=== PATIENT | female | born 1990 | race Caucasian/White ===

== ENCOUNTER 2017-06-27 23:33 | Emergency (ER) | payer MEDICAID ==
[~2017-06-27] VITALS: Ht 157.5 cm; Wt 59.0 kg
[2017-06-28 01:50] LABS: CHLORIDE 102 mEq/L (98-107)
[2017-06-28 01:54] LABS: BASOPHILS % 0.4 % (0.0-2.0); HEMATOCRIT. 38.5 % (36.0-48.0); LYMPHOCYTES % 26.4 % (20.0-50.0); MEAN CORPUSCULAR HEMOGLOBIN 29.2 pg (28.0-32.0); MEAN CORPUSCULAR VOLUME 86.7 fL (81.0-99.0); MEAN PLATELET VOLUME 7.2 fl (7.4-10.4); MONOCYTES % 7.6 % (2.0-8.0); NEUTROPHILS % 64.6 % (40.0-76.0); PLATELET 219 x1000/uL (130-400); RED BLOOD CELL COUNT 4.45 mill/uL (4.2-5.4)
[2017-06-28 02:06] LABS: CARBON DIOXIDE 27 mEq/L (21-32)
[2017-06-28 02:18] LABS: B-HCG QUANTITATIVE 9197 mIU/mL (<3)
[2017-06-28 02:34] LABS: CLARITY URINE CLOUDY (CLEAR); COLOR URINE YELLOW (YELLOW); GLUCOSE URINE NEGATIVE (NEGATIVE); KETONES URINE NEGATIVE (NEGATIVE); LEUKOCYTE ESTERASE URINE TRACE (NEGATIVE); NITRITE URINE NEGATIVE (NEGATIVE); OCCULT BLOOD URINE 3+ (NEGATIVE); PH URINE 6.5 (4.5-8.0); PROTEIN URINE NEGATIVE (NEGATIVE); SPECIFIC GRAVITY URINE 1.019 (1.005-1.030); UROBILINOGEN URINE 0.2 E.U./dL (0.2-1.0)
[2017-06-28 03:13] VITALS: BP 106/58
[2017-06-28] MEDS ORDERED: POTASSIUM CHLORIDE 20MEQ TABLET SR PO NR (03:30)
== END 2017-06-28 04:05 | disposition home or self-care (01) ==
LOC: ER 06-28 00:03
DX: O46.92 Antepartum hemorrhage, unspecified, second trimester (principal); N93.8 Other specified abnormal uterine and vaginal bleeding; O99.282 Endocrine, nutritional and metabolic diseases complicating pregnancy, second trimester; E87.6 Hypokalemia; O99.332 Smoking (tobacco) complicating pregnancy, second trimester; F17.200 Nicotine dependence, unspecified, uncomplicated; Z3A.22 22 weeks gestation of pregnancy
CPT/HCPCS: 36415; 76801; 80053; 81001; 81025; 84702; 85025; 86850; 86900; 99285

== ENCOUNTER 2018-07-18 09:26 | Emergency (ER) | payer MEDICAID ==
[~2018-07-18] VITALS: Ht 157.5 cm; Wt 109.0 kg
[~2018-07-18 09:26] MED LIST: PNV1TABL76 PO
[2018-07-18] MEDS ORDERED: SODIUM CHLORIDE 0.9% 1,000 ML IV ONE (10:15)
[2018-07-18 10:45] LABS: BASOPHILS % 0.1 % (0.0-2.0); EOSINOPHILS % 0.1 % (0.0-5.0); HEMATOCRIT. 44.2 % (36.0-48.0); HEMOGLOBIN. 14.7 g/dL (12.0-16.0); LYMPHOCYTES % 8.2 % (20.0-50.0); MEAN CORPUSCULAR HEMOGLOBIN 29.6 pg (28.0-32.0); MEAN CORPUSCULAR VOLUME 89.3 fL (81.0-99.0); MEAN PLATELET VOLUME 7.1 fl (7.4-10.4); MONOCYTES % 4.3 % (2.0-8.0); NEUTROPHILS % 87.3 % (40.0-76.0); PLATELET 264 x1000/uL (130-400); RED BLOOD CELL COUNT 4.94 mill/uL (4.2-5.4)
[2018-07-18 10:49] LABS: CHLORIDE 105 mEq/L (98-107)
[2018-07-18 10:55] LABS: CLARITY URINE CLOUDY (CLEAR); COLOR URINE YELLOW (YELLOW); KETONES URINE NEGATIVE (NEGATIVE); LEUKOCYTE ESTERASE URINE 2+ (NEGATIVE); NITRITE URINE NEGATIVE (NEGATIVE); OCCULT BLOOD URINE 1+ (NEGATIVE); PROTEIN URINE TRACE (NEGATIVE); SPECIFIC GRAVITY URINE 1.018 (1.005-1.030); UROBILINOGEN URINE 0.2 E.U./dL (0.2-1.0)
[2018-07-18 12:29] VITALS: BP 108/68
== END 2018-07-18 13:01 | disposition home or self-care (01) ==
LOC: ER 09:26
DX: N39.0 Urinary tract infection, site not specified (principal)
CPT/HCPCS: 36415; 80053; 81003; 81025; 83690; 85025; 87086; 96360; 99283; J7030

== ENCOUNTER 2018-10-08 23:33 | Emergency (ER) | payer MEDICAID ==
[~2018-10-08] VITALS: Ht 157.5 cm; Wt 59.0 kg
[2018-10-09 03:19] LABS: CLARITY URINE CLOUDY (CLEAR); COLOR URINE DARK YELLOW (YELLOW); KETONES URINE 2+ (NEGATIVE); LEUKOCYTE ESTERASE URINE NEGATIVE (NEGATIVE); NITRITE URINE NEGATIVE (NEGATIVE); OCCULT BLOOD URINE 2+ (NEGATIVE); PH URINE 5.5 (4.5-8.0); PROTEIN URINE 1+ (NEGATIVE); SPECIFIC GRAVITY URINE 1.046 (1.005-1.030)
[2018-10-09] MEDS ORDERED: PREDNISONE 20MG TABLET PO ONE (04:30)
[2018-10-09] MEDS ORDERED: KETOROLAC 60MG/2ML VIAL IM ONE (04:30)
[2018-10-09 05:29] LABS: MONOTEST NEGATIVE (NEGATIVE)
[2018-10-09 06:01] VITALS: BP 122/70
== END 2018-10-09 06:02 | disposition home or self-care (01) ==
LOC: ER 23:33
DX: J02.9 Acute pharyngitis, unspecified (principal)
CPT/HCPCS: 81003; 81025; 86308; 87070; 87430; 96372; 99283; J1885; J7512